=== PATIENT | female | born 1985 | race Asian ===

== ENCOUNTER 2021-12-11 08:08 | Outpatient (CLI) | payer BC, SELFPAY ==
[2021-12-11 14:34] LABS: Chloride* 103 mmol/L (96-114)
[2021-12-11 14:35] LABS: Potassium* 4.6 mmol/L (3.6-5.1); Sodium* 138 mmol/L (135-149)
[2021-12-11 14:37] LABS: Cholesterol* 140 mg/dL (90-199)
[2021-12-11 14:38] LABS: Blood Urea Nitrogen* 14 mg/dL (5-24); Calcium* 8.8 mg/dL (8.4-10.6); Carbon Dioxide* 28 mmol/L (20-32); Creatinine* 0.6 mg/dL (0.5-1.5); Estimated Glomerular Filt Rate 118 ml/min; Glucose* 100 mg/dL (60-115); Triglycerides* 146 mg/dL (40-149)
[2021-12-11 14:39] LABS: HDL Cholesterol* 55 mg/dL (>=50); LDL Cholesterol Calculated 56 mg/dL (<100)
== END 2021-12-11 08:09 | disposition home or self-care (01) ==
PROVIDERS: PCP Family Medicine; Visit Provider Emergency Medicine
DX: Z00.00 Encounter for general adult medical examination without abnormal findings (principal); E78.1 Pure hyperglyceridemia
CPT/HCPCS: 80048; 80061

== ENCOUNTER 2022-12-25 14:12 | Outpatient (CLI) | payer BC, SELFPAY | END 2022-12-25 14:13 | disposition home or self-care (01) | PROVIDERS: PCP Family Medicine; Visit Provider Emergency Medicine | DX: Z00.00 Encounter for general adult medical examination without abnormal findings (principal); E78.1 Pure hyperglyceridemia; Z13.1 Encounter for screening for diabetes mellitus; D72.819 Decreased white blood cell count, unspecified | CPT/HCPCS: 80061; 82947 ==

== ENCOUNTER 2024-03-17 12:47 | Outpatient (CLI) | payer MEDICAID, SELFPAY | END 2024-03-17 12:48 | disposition home or self-care (01) | PROVIDERS: PCP Family Medicine; Visit Provider Family Medicine | DX: E78.1 Pure hyperglyceridemia (principal); B19.10 Unspecified viral hepatitis B without hepatic coma; D72.819 Decreased white blood cell count, unspecified; Z13.1 Encounter for screening for diabetes mellitus | CPT/HCPCS: 80053; 80061; 86704; 86705; 86706; 87340; 88141; 88142 ==

== ENCOUNTER 2024-03-31 10:33 | Outpatient (CLI) | payer OTHER, SELFPAY ==
--- NOTE | 2024-03-31 10:45 | CRLHL7_ITS ---
For Patients: As a result of the Century Cures Act, medical imaging exams and procedure reports are released immediately into your electronic medical record. You may view this report before your referring provider. If you have questions, please contact your health care provider. 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 FINDINGS: The patient`s liver is of normal size and has diffusely increased echogenicity. Main portal vein is patent with antegrade flow. There is a normal appearance of the hepatic IVC and proximal abdominal aorta. There is no evidence of ascites. The gallbladder is of normal size and there is no evidence of intraluminal stones or sludge. The gallbladder wall measures 1.8 mm in thickness. The common bile duct is of normal size and measures 1.7 mm in diameter at the level of the birdie hepatis. The pancreas appears heterogeneous. There is no evidence of a stone or hydronephrosis within the right kidney. The right kidney measures 11.1 cm in length. IMPRESSION: Moderate diffuse hepatic steatosis. Dictated by Isma Damon MD @ 03/31/2024 12:44:43 PM (Electronically Signed)
== END 2024-03-31 10:34 | disposition home or self-care (01) ==
PROVIDERS: PCP Family Medicine; Visit Provider Family Medicine
DX: B19.10 Unspecified viral hepatitis B without hepatic coma (principal); K76.0 Fatty (change of) liver, not elsewhere classified
CPT/HCPCS: 76705

== ENCOUNTER 2024-12-10 08:50 | Outpatient (CLI) | payer BC, SELFPAY | END 2024-12-10 08:51 | disposition home or self-care (01) | PROVIDERS: PCP Family Medicine; Visit Provider Physician Assistant Medical | DX: R74.8 Abnormal levels of other serum enzymes (principal); E78.1 Pure hyperglyceridemia | CPT/HCPCS: 80053; 80061 ==